=== PATIENT | female | born 1970 | race Caucasian/White ===

== ENCOUNTER 2020-07-06 17:50 | Emergency (ER) | payer SELFPAY ==
[2020-07-06 18:06] VITALS: BP 187/71; PULSE 98; RESP 18; TEMP 35.9; O2SAT 100
--- NOTE | 2020-07-06 18:29 | ED.SKABFB ---
HPI - Skin/Abscess/Foreign Bdy General Chief complaint: Skin/Abscess/Foreign Body Stated complaint: Rash Time Seen by Provider: 07/06/20 18:29 Source: patient Mode of arrival: ambulatory History of Present Illness HPI narrative: Jennifer Schmid is a 49-year-old female with a PMH of hypertension, who comes to [facility] with a rash of arms and on face. She had a redness around her eye had called her veterinary x ray operator gave her eyedrops thinking that she had pinkeye but the eye continues to be red on eyelid and mild rash on face. Rash is pruritic. Patient states that it was not believed to be contact dermatitis from plants or other outside allergen as she has not been doing anything out in the yard and her and son do most of those kinds of tasks she had Covid March and was concerned initially that this might be related to Covid. Discussed treatment of this rash as if it was.contact dermatitis and will follow up with primary care Related Data Home Medications Medication Instructions Recorded Confirmed albuterol sulfate 2 inh INHALATION DIRECTED 07/06/20 07/06/20 losartan-hydrochlorothiazide 1 tablet PO DAILY 07/06/20 07/06/20 Allergies Allergy/AdvReac Type Severity Reaction Status Date / Time iodine Allergy Mild Hives Unverified 07/06/20 17:58 1.SHELL FISH Allergy Mild Hives Uncoded 07/06/20 17:58 SHELLFISH Allergy Mild Hives Uncoded 07/06/20 17:58 Review of Systems Review of Systems: Narrative: CONSTITUTIONAL: Denies fever, chills, sweats. EYES: Denies visual changes, redness, discharge. ENT: Denies rhinorrhea, congestion, sore throat, otalgia. CARDIOVASCULAR: Denies chest pain, palpitations, edema. RESPIRATORY: Denies dyspnea, wheezing, cough GASTROINTESTINAL: Denies abdominal pain, nausea, vomiting, diarrhea. GENITOURINARY: Denies dysuria, hematuria, abnormal discharge SKIN: Has red rash on medial side of arms back of hands mild on face red right eyelid NEUROLOGIC: Denies numbness, or focal weakness. PSYCHIATRIC: Denies anxiety or depression. [facility] Past Medical History Medical History HTN (hypertension) Family History Family History Other Diabetes mellitus Hypertension Social History Social History (Updated 07/06/20 @ 18:32 by Mili Patel CNP) Smoking packs per day: 0.5 Smoking cigarettes per day: 10.0 Smoking status: Current every day smoker Alcohol intake: never Comments At time of signature, I agree with nursing past medical, surgical, social and family history. There is no relevant family history pertinent to the presenting complaint. Blood pressure is elevated patient has a diagnosis of hypertension but must discuss with PCP they have been trying to rearrange her medication because her blood pressure has been running high Exam Narrative: Exam Narrative: GENERAL: This is a well-nourished, well-developed patient, in mild distress. HEAD: normocephalic, atraumatic. EYES: Sclera clear/white. Vision is grossly intact. Eyelid on the right is red non-edemic EARS: External ears normal, . Hearing grossly intact. NOSE: External nose normal without nasal discharge, nares without redness, no rhinorrhea. THROAT: Mucous membranes moist, NECK: Neck supple, CARDIOVASCULAR: Regular rate and rhythm without murmurs, gallops, or rubs. RESPIRATORY: Diminished to auscultation. Breath sounds equal bilaterally. His wheezing bilateral bases of lungs, no Rales or rhonchi, GASTROINTESTINAL: Abdomen soft, non-tender, SKIN: warm, intact with good texture and turgor. Has rib papular rash on medial side of both arms the top of both hands on face, pruritic NEURO: awake, alert, and oriented to person, place and time. There were no obvious focal neurologic abnormalities. Steady gait EXTREMITIES: Normal range of motion. BACK: Nontender without deformity Course Course Emergency Course: Krzysztof
== END 2020-07-06 18:42 | disposition home or self-care (01) ==
PROVIDERS: Emergency Provider Nurse Practitioner
DX: L25.9 Unspecified contact dermatitis, unspecified cause (principal); Z86.16 Personal history of COVID-19; F17.210 Nicotine dependence, cigarettes, uncomplicated; I10 Essential (primary) hypertension
CPT/HCPCS: 99213; G0463

== ENCOUNTER 2021-04-07 18:45 | Emergency (ER) | payer SELFPAY ==
[2021-04-07] MEDS: SODIUM CHLORIDE 0.9% IV 1,000 ML 999 ML (18:48)
[2021-04-07] MEDS: EPINEPHrine INJ 1 MG/10 ML SYRINGE 5 MG (18:48)
--- NOTE | 2021-04-07 19:10 | PC.NURSE ---
Director Of Industrial Relations notified - Roger @ [phone]
--- NOTE | 2021-04-07 19:19 | ED.GENADULT ---
HPI - General Adult General Chief complaint: Cardiac Arrest/CPR Stated complaint: CARDIAC ARREST Time Seen by Provider: 04/07/21 19:05 Source: RN notes reviewed History of Present Illness HPI narrative: Patient presents emergency department for cardiac arrest. History is per EMS as the patient currently has a I gel in place with CPR currently. Patient had gone out to eat with her family when she returned home she had seizure-like activity she has a history of seizures has not had one for several years initial call when out at 1759. When EMS arrived the patient was in cardiac arrest they began CPR on the patient they attempted intubate the patient with large amounts of emesis she also had blood in the back of her throat and I gel was placed she is initially in V. fib with 4 total shocks given a procedure in the PA patient is in PEA on arrival Related Data Home Medications Medication Instructions Recorded Confirmed albuterol sulfate 90 mcg/actuation 1 puff INHALATION Q4H PRN 11/20/20 11/20/20 aerosol inhaler triamcinolone acetonide 0.1 % 1 applic TOPICAL BID 11/20/20 11/20/20 topical cream Allergies Allergy/AdvReac Type Severity Reaction Status Date / Time iodine Allergy Mild Hives Unverified 07/06/20 17:58 1.SHELL FISH Allergy Mild Hives Uncoded 07/06/20 17:58 SHELLFISH Allergy Mild Hives Uncoded 07/06/20 17:58 Review of Systems Review of Systems: ROS unobtainable: Yes unobtainable due to endotracheal tube PMFSH Past Medical History Medical History Allergies Asthma History of COVID-19 HTN (hypertension) Family History Family History (Updated 11/20/20 @ 13:45 by Trista Hu CMA) Father Diabetes mellitus Hypertension Heart disease Grandparent Diabetes mellitus Hypertension Heart disease Cerebrovascular accident Mother Breast cancer Social History Social History Smoking packs per day: 0.5 Smoking cigarettes per day: 10.0 Smoking status: Current every day smoker Alcohol intake: current Alcohol use details: 1-2 drinks per month Substance use: never Substance use type: does not use Exam Narrative: CAPPEARANCE: Lying in bed unresponsive to verbal and painful stimuli HEENT: Normocephalic, swelling ecchymosis over the right forehead as well as mild swelling of the midline forehead nasal bridge with bruising, orotracheal tube in place the right front incisor has been broken Eyes: Pulses fixed and dilated RESPIRATORY: No spontaneous breath sounds auscultated. Equal breath sounds with bag ventilation CARDIOVASCULAR: No spontaneous heart rate auscultated ABDOMINAL: Soft, nondistended MUSCULOSKELETAl: Distal cyanosis with no spontaneous motion of extremities NEURO: Unresponsive to verbal and painful stimuli SKIN:: Cool and dry the right dorsal foot has a proximal laceration with superficial abrasion that extends distally Course Course Emergency Course: Patient with CPR performed throughout stay in ED patient remained in PEA throughout all rhythm checks Patient's family was brought back into room discussed continued CPR and CPR was stopped Time of 1904 Dr. Mcleod was called and updated for ORTHOPEDIC TECHNICIAN Vitor Updated patient and family on patient's all questions answered Procedures Intubation Intubation #1: sedative: none Laryngoscope: fiber optic video scope Tube Size (cm): 7.5 Method of Intubation: orotracheal Number of Attempts: 1 Tube Secured Depth (cm): 25 Tube Secured Location: teeth Tube Placement Confirmation: visualized tube passing through cords, equal breath sounds bilaterally, no breath sounds over epigastrium and confirmation by capnometry Patient Tolerated Procedure: well Intubation Complications: other (Patient with large amount of food material in posterior throat with large amount of mat
--- NOTE | 2021-04-07 19:23 | PC.NURSE ---
FOX Montero notified @ [phone]
--- NOTE | 2021-04-07 19:29 | PC.NURSE ---
MTS - May be a candidate, so please do not release to home if nail galvanizer does release the body .
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
--- NOTE | 2021-04-07 19:51 | PC.NURSE ---
MTS - Eda - patient is a candidate with [facility], but will be reached out to by [facility].
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
--- NOTE | 2021-04-07 22:07 | PC.NURSE ---
per family they would like yady home in [place]. Content Assistant Janette notified at this time. Janette will come out and do a quick assessment (knows that pt was released and family has been in to see the patient- she just wants to lay eyes on the patient).
--- NOTE | 2021-04-07 22:30 | PC.NURSE ---
manager of enterprise at bedside for pictures.
--- NOTE | 2021-04-07 22:30 | PC.NURSE ---
MTS notified of family choice of home.
--- NOTE | 2021-04-07 22:48 | PC.NURSE ---
[place] [facility] [place] 2 techs, 2 rn, and 1 chief security officer.
== END 2021-04-08 01:43 | disposition expired ==
PROVIDERS: Emergency Provider Emergency Medicine; PCP Nurse Practitioner
DX: I46.9 Cardiac arrest, cause unspecified (principal); R56.9 Unspecified convulsions; I10 Essential (primary) hypertension; F17.210 Nicotine dependence, cigarettes, uncomplicated; Z86.16 Personal history of COVID-19; Z87.09 Personal history of other diseases of the respiratory system
CPT/HCPCS: 31500; 36680; 96360; 96372; 99285; J0171; J7030